=== PATIENT | female | born 1960 | race Hispanic/Latino ===

== ENCOUNTER → 2022-06-03 | Outpatient (CLI) | payer OTHER ==
[~2022-06-03] MED LIST: MONTELUKAST SOD10 MG PO; MULTIVITAMIN1 EACH; OMEPRAZOLE40 MG PO; PRAVASTATIN SOD20 MG PO
== END ==
LOC: RAD 11:06 → EDSTATUS 06-07 08:00
PROVIDERS: ATTEND Specialist
DX: Z01.810 Encounter for preprocedural cardiovascular examination (principal); S83.241A Other tear of medial meniscus, current injury, right knee, initial encounter
CPT/HCPCS: 93005

== ENCOUNTER 2023-03-01 09:11 | Outpatient (RCR) | payer OTHER | END 2023-03-29 | LOC: PT 09:11 | PROVIDERS: ATTEND Physician Assistant | DX: M17.11 Unilateral primary osteoarthritis, right knee (principal) ==

== ENCOUNTER → 2024-01-02 | Day surgery (SDC) | payer OTHER ==
[~2024-01-02] MED LIST changes: +CENTRUM ADULTS1 EACH PO; +DEXILANT30 MG PO; +HYDROXYZINE HCL10 MG PO; +HYOSCYAMINE SULFATE 0.5 MG/ML INJ ONE; +LIDOCAINE HCL 2% LOCAL INJ 5 ML SDV VIAL INJ ONE; +PROPOFOL IV EMULSION 10 MG/ML 50 ML VIAL IV ONE
[2024-01-02] MEDS: LACTATED RINGER'S 1,000 ML ONE (13:19)
[2024-01-02 14:15] VITALS: BP 115/75; PULSE 73; RESP 16; O2SAT 98
== END | disposition home or self-care (01) ==
LOC: OR 12:39
PROVIDERS: ATTEND Internal Medicine Gastroenterology
DX: K21.9 Gastro-esophageal reflux disease without esophagitis (principal); Z86.010 Personal history of colon polyps; K29.70 Gastritis, unspecified, without bleeding; K20.90 Esophagitis, unspecified without bleeding; K31.89 Other diseases of stomach and duodenum; K44.9 Diaphragmatic hernia without obstruction or gangrene; K59.00 Constipation, unspecified; Z71.3 Dietary counseling and surveillance; R03.0 Elevated blood-pressure reading, without diagnosis of hypertension; E78.5 Hyperlipidemia, unspecified; R06.02 Shortness of breath; G89.29 Other chronic pain; F41.9 Anxiety disorder, unspecified; Z88.0 Allergy status to penicillin; Z01.810 Encounter for preprocedural cardiovascular examination; Z79.899 Other long term (current) drug therapy; Z68.33 Body mass index [BMI] 33.0-33.9, adult; Z87.891 Personal history of nicotine dependence
CPT/HCPCS: 43239; 43450; 45330; 93005; J1980; J2001; J2470; J2704; J7121; 45378

== ENCOUNTER → 2024-01-25 | Day surgery (SDC) | payer OTHER ==
[~2024-01-25] MED LIST changes: -HYOSCYAMINE SULFATE 0.5 MG/ML INJ ONE; +LACTATED RINGER'S 1,000 ML ONE; +PROPOFOL IV EMULSION 10 MG/ML 20 ML VIAL ONE
[2024-01-25 11:23] VITALS: TEMP 97.3
[2024-01-25 11:45] VITALS: BP 107/71; PULSE 67; RESP 18; O2SAT 98
== END | disposition home or self-care (01) ==
LOC: OR 08:53
PROVIDERS: ATTEND Internal Medicine Gastroenterology
DX: Z09 Encounter for follow-up examination after completed treatment for conditions other than malignant neoplasm (principal); D12.3 Benign neoplasm of transverse colon; D12.5 Benign neoplasm of sigmoid colon; K57.30 Diverticulosis of large intestine without perforation or abscess without bleeding; K64.8 Other hemorrhoids; K21.9 Gastro-esophageal reflux disease without esophagitis; R13.10 Dysphagia, unspecified; E78.5 Hyperlipidemia, unspecified; R06.02 Shortness of breath; G89.29 Other chronic pain; M06.9 Rheumatoid arthritis, unspecified; M19.90 Unspecified osteoarthritis, unspecified site; R03.0 Elevated blood-pressure reading, without diagnosis of hypertension; F41.9 Anxiety disorder, unspecified; Z88.0 Allergy status to penicillin; Z79.899 Other long term (current) drug therapy; Z68.33 Body mass index [BMI] 33.0-33.9, adult; Z87.891 Personal history of nicotine dependence
CPT/HCPCS: 45385; J2001; J2704 ×2; J7121; 45378

== ENCOUNTER → 2024-03-05 | Outpatient (REF) | payer OTHER ==
[~2024-03-05] MED LIST changes: -LACTATED RINGER'S 1,000 ML ONE; -LIDOCAINE HCL 2% LOCAL INJ 5 ML SDV VIAL INJ ONE; -PROPOFOL IV EMULSION 10 MG/ML 20 ML VIAL ONE; -PROPOFOL IV EMULSION 10 MG/ML 50 ML VIAL IV ONE
== END ==
LOC: US 09:50
PROVIDERS: ATTEND Nurse Practitioner
DX: R10.84 Generalized abdominal pain (principal); R14.0 Abdominal distension (gaseous)
CPT/HCPCS: 76700; 76856

== ENCOUNTER → 2024-05-22 | Outpatient (REF) | payer OTHER | LOC: NM 08:29 | PROVIDERS: ATTEND Nurse Practitioner | DX: R14.0 Abdominal distension (gaseous) (principal); K29.70 Gastritis, unspecified, without bleeding; R10.84 Generalized abdominal pain; Z86.0100 Personal history of colon polyps, unspecified; Z86.32 Personal history of gestational diabetes | CPT/HCPCS: 78227; A9537 ==